=== PATIENT | female | born 1975 | race Caucasian/White ===

== ENCOUNTER 2018-12-26 07:20 | Day surgery (SDC) | payer OTHER ==
[2018-12-26] MEDS ORDERED: Dextrose 5%-Lactated Ringers 1,000 ML IV SCH (08:00)
[2018-12-26] MEDS ORDERED: fentaNYL 100 MCG/2 ML SDV ONE (08:43)
[2018-12-26] MEDS ORDERED: Propofol 200 MG/20 ML SDV ONE (08:43)
[2018-12-26] MEDS ORDERED: Midazolam 1 MG/ML 2 ML SDV ONE (08:43)
--- NOTE | 2018-12-30 07:45 | OR ---
DATE OF PROCEDURE: 12/26/2018 PREOPERATIVE DIAGNOSES: 1. History of rectal bleeding. 2. Probable pelvic endometriosis, rule out luminal endometriosis. POSTOPERATIVE DIAGNOSES: 1. Rectal bleeding, likely associated with a low rectal polyp. 2. No evidence of luminal endometriosis. OPERATIVE PROCEDURES: Flexible colonoscopy with polypectomy by snare technique. ANESTHESIA: IV sedation. INDICATION FOR PROCEDURE: This is a 43-year-old presenting with some rectal bleeding. This appeared to be more pronounced during her menstrual periods. 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 The plan is to proceed with a flexible colonoscopy with biopsies and/or polypectomy as indicated. The referral was made with the intent to also rule out any evidence of luminal endometriosis, which might be contributing to some of the bleeding, if present. Potential risks including bleeding and perforation were discussed, and the patient wishes to proceed. DETAILS OF PROCEDURE: The patient was taken to the operating room and placed in the left lateral decubitus position. IV sedation was administered, after which the initial digital rectal exam was performed and was unremarkable. Colonoscope was then passed into the rectum. Immediately, upon entering the rectum, the patient was noted to have a roughly 1 cm polyp. This was located perhaps 1 cm above the dentate line, i.e. was in the rectum rather than the anal canal per se, and did have small amount of blood on its surface. The scope was then eventually passed to the cecum. The prep was quite good there with there being only a small amount of liquid stool present. To that level, no additional abnormalities were noted, specifically, there was no evidence of any luminal endometriosis. As the scope was then withdrawn, the polyp was once again identified in the low rectum, encircled at its base with a snare and then cauterized, and that polyp was then removed and sent for histologic evaluation. Good hemostasis was noted at the polypectomy site. The patient was taken to the recovery room in a satisfactory condition. I suspect we probably eliminated the patient's bleeding source by means of the polypectomy. She is instructed that, if she has some persistent subsequent bleeding, we will perform an in-clinic anoscopy and perhaps hemorrhoid banding if necessary. But with the polyp being removed, I suspect this is probably her main source of rectal bleeding. Followup colonoscopy will depend on pathology on the polyp. Assuming this is an adenomatous polyp, a followup colonoscopy should be performed in 2 years and subsequently thereafter every 5 years. Michael Freire MD /[id number]
== END 2018-12-26 10:45 | disposition home or self-care (01) ==
LOC: JP.SDS 07:20
PROVIDERS: ATTEND Surgery
DX: K62.5 Hemorrhage of anus and rectum (principal); D12.8 Benign neoplasm of rectum; E66.9 Obesity, unspecified; F17.200 Nicotine dependence, unspecified, uncomplicated; K21.9 Gastro-esophageal reflux disease without esophagitis
CPT/HCPCS: 45385; 81025; J2250; J2704; J3010; J7042; 88305

== ENCOUNTER 2022-09-18 07:21 | Day surgery (SDC) | payer OTHER ==
[~2022-09-18 07:21] MED LIST: Midazolam 1 MG/ML 2 ML SDV ONE; Propofol 200 MG/20 ML SDV ONE; fentaNYL 100 MCG/2 ML SDV ONE
[2022-09-18] MEDS ORDERED: Lactated Ringers 1,000 ML IV SCH (07:45)
== END 2022-09-18 09:55 | disposition home or self-care (01) ==
LOC: JP.SDS 07:21
PROVIDERS: ATTEND Family Medicine
DX: Z12.11 Encounter for screening for malignant neoplasm of colon (principal); D12.5 Benign neoplasm of sigmoid colon; Z98.890 Other specified postprocedural states; F17.200 Nicotine dependence, unspecified, uncomplicated
CPT/HCPCS: 45380; J2250; J2704; J3010; J7120